=== PATIENT | female | born 1980 | race Caucasian/White ===

== ENCOUNTER 2017-03-25 12:02 | Emergency (ER) | payer MEDICAID ==
[2017-03-25 12:58] VITALS: BP 127/86
[2017-03-25 13:42] LABS: CHLORIDE,CL 107 mmol/L (98-107); SODIUM,NA 141 mmol/L (136-145)
--- NOTE | 2017-03-25 14:20 | EDM.PDOC ---
ED HISTORY OF PRESENT ILLNESS - General Chief Complaint: Cardiovascular Problem Stated Complaint: CARDIAC ISSUES Time Seen by Provider: 03/25/17 12:24 Source of Information: Reports: Patient, RN, RN notes reviewed History Limitations: Reports: No limitations - History of Present Illness INITIAL COMMENTS - FREE TEXT/NARRATIVE: Patient presents to emergency room at [facility] with concerns of heart palpitations. The patient was seen a couple of days ago at [facility] and by her PCP with the same complaint. The patient states that she was placed on a Holter monitor a couple days ago. The patient states that she felt her palpitations and became a little dizzy today. The patient contacted the Holter monitor company and they recommended she be seen in the emergency room. The patient states that she did feel her palpitations and some dizziness earlier today. The patient denies any shortness of breath or chest pain. Overall the patient states she feels fine. She is just concerned and would like to be checked out. 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: Psychiatric History: Reports: Anxiety, Depression - Past Surgical History HEENT Surgical History: Reports: Oral surgery Female Surgical History: Reports: section Musculoskeletal Surgical History: Reports: Other (see below) Other Musculoskeletal Surgeries/Procedures:: foot surger, plantar fascitis Social & Family History - Tobacco Use Smoking Status *Q: Current Every Day Smoker Years of Tobacco use: 20 Packs/Tins Daily: 0.5 Used Tobacco, but Quit: No Second Hand Smoke Exposure: Yes - Alcohol Use Days Per Week of Alcohol Use: 2 - Recreational Drug Use Recreational Drug Use: Yes Drug Use in Last 12 Months: No ED ROS GENERAL - Review of Systems Review Of Systems: See Below Constitutional: Denies: fever, chills, weakness Respiratory: Denies: Shortness of Breath, Cough Cardiovascular: Reports: Palpitations. Denies: Chest pain, Blood pressure problem, Dyspnea on exertion, Lightheadedness GI/Abdominal: Denies: Abdominal pain, Nausea, Vomiting Skin: Reports: no symptoms Neurological: Reports: Dizziness. Denies: Headache, Numbness, Paresthesia, Tingling ED EXAM, GENERAL - Physical Exam Exam: See Below Exam Limited By: No limitations General Appearance: alert, no apparent distress Respiratory/Chest: no respiratory distress, lungs clear, normal breath sounds Cardiovascular: normal peripheral pulses, regular rate, rhythm, no edema, no murmur Peripheral Pulses: 2+: radial (L), radial (R) GI/Abdominal: normal bowel sounds, soft, non tender Neurological: alert, oriented Skin Exam: Warm, Dry, Intact, Normal color, No rash EKG INTERPRETATION EKG Date: 03/25/17 Time: 12:30 Rhythm: NSR Rate (beats/min): 58 [place]: normal P-wave: present QRS: normal ST-T: normal QT: normal OH/PQ Interval: 0.15 Comparison: NA - no prior EKG EKG Interpretation Comments: Sinus Bradycardia Poor R wave progression - probable normal variant Course - Vital Signs Last Recorded V/S: Last Vital Signs Temp 37.1 C 03/25/17 12:57 Pulse 71 03/25/17 12:57 Resp 16 03/25/17 12:57 BP 127/86 03/25/17 12:57 Pulse Ox 97 03/25/17 12:57 - Orders/Labs/Meds Orders: Active Orders 24 hr Category Date Time Status Chest 2V [CR] Stat Exams 03/25/17 12:52 Taken Labs: Laboratory Tests 03/25/17 03/25/17 03/25/17 Range/Units 13:04 13:04 13:11 WBC 6.6 (4.0-10.0) x10^3/uL RBC 4.18 (4.00-5.50) x10^6/uL Hgb 12.2 (12.0-16.0) g/dL Hct 36.8 (33.0-47.0) % MCV 88.0 (78.0-93.0) fL MCH 29.2 (26.0-32.0) pg MCHC 33.2 (32.0-36.0) g/dL RDW Coeff of Emma 13.6 (10.0-15.0) % Plt Count 278 (130-400) x10^3/uL Neut % (Auto) 54.9 (50.0-80.0) % Lymph % (Auto) 34.5 (25.0-50.0) % Nash % (Auto) 8.4 (2.0-11.0) % Eos % (Auto) 1.7 (0.0-4.0) % Baso % (Auto) 0.5 (0.2-1.2) % Sodium 141 (136-145) mmol/L Potassium 4.4 (3.5-5.1) mmol/L Chloride 107 (98-107) mmol/L Carbon Dioxide 27 (21-32) mmol/L BUN 13 (7-18) mg/dL Creatinine 0.8 (0.55-1.02) mg/dL Est Cr Clr Drug Dosing 86.64 mL/min Estimated GFR (MDRD) > 60 Glucose 99 (74-106) mg/dL Calcium 8.5 (8.5-10.1) mg/dL Phosphorus 3.4 (2.6-4.7) mg/dL Magnesium 2.1 (1.8-2.4) mg/dL Creatine Kinase 97 (26-192) U/L Creatine Kinase Index 0.6 (0.0-4.0) % CK-MB (CK-2) 0.6 (0.0-3.6) ng/mL POC Troponin I 0.00 (0.00-0.08) ng/mL - Radiology Interpretation Free Text/Narrative:: CXR: No acute process; see scanned document in EMR Departure - Departure Time of Disposition: 14:19 Disposition: Home, Self-Care 01 Condition: good Clinical Impression: Palpitations Instructions: Palpitations Referrals: Bri Hansen PA-C [Primary Care Provider] - Forms: ED Department Discharge Additional Instructions: 1. Stay well hydrated and rest 2. Continue to wear monitor as directed 3. See your Primary as needed - Problem List Review Problem List Initiated/Reviewed/Updated: Yes - My Orders Last 24 Hours: My Active Orders 03/25/17 12:52 Chest 2V [CR] Stat - Assessment/Plan Last 24 Hours: My Active Orders 03/25/17 12:52 Chest 2V [CR] Stat
== END 2017-03-25 14:30 | disposition home or self-care (01) ==
LOC: VM.ED 12:02
DX: R00.2 Palpitations (principal); F41.9 Anxiety disorder, unspecified; F32.9 Major depressive disorder, single episode, unspecified; F17.210 Nicotine dependence, cigarettes, uncomplicated; Z79.899 Other long term (current) drug therapy
CPT/HCPCS: 36415; 71020; 80048; 82550; 82553; 83735; 84100; 84484; 85025; 93005; 99284

== ENCOUNTER 2019-11-29 13:10 | Emergency (ER) | payer SELFPAY ==
--- NOTE | 2019-11-29 13:22 | EDM.PDOC ---
ED HPI GENERAL MEDICAL PROBLEM - General Chief Complaint: Lower Extremity Injury/Pain Stated Complaint: right ankle injury Time Seen by Provider: 11/29/19 13:10 Source of Information: Reports: Patient History Limitations: Reports: No Limitations - History of Present Illness INITIAL COMMENTS - FREE TEXT/NARRATIVE: Patient comes in the emergency department with complaint of a right ankle injury. Patient states that she was dancing last night ended up miss stepping and rolling her right ankle. She felt a popping/crunching sensation. She states that she was unable to bear weight initially on the ankle. She did go home and try to elevate it and place ice over the right lower extremity. She states that she can place minimal amount of weight on that right extremity. She states that it hurts to move her ankle in all directions. She also notes that she has continued to have swelling in the lower extremity. Patient has had a smoking history with sprained ankles on that right lower extremity when she was younger due to sports related injuries. Patient denies ever having a fracture that lower externally. Eyes any other injuries or concerns. 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: Psychiatric History: Reports: Anxiety, Depression - Past Surgical History HEENT Surgical History: Reports: Oral Surgery Female Surgical History: Reports: Section Musculoskeletal Surgical History: Reports: Other (See Below) Review of Systems - Review of Systems Review Of Systems: See Below Constitutional: Reports: No Symptoms Eyes: Reports: No Symptoms Ears: Reports: No Symptoms Nose: Reports: No Symptoms Mouth/Throat: Reports: No Symptoms Respiratory: Reports: No Symptoms Cardiovascular: Reports: No Symptoms GI/Abdominal: Reports: No Symptoms Genitourinary: Reports: No Symptoms Skin: Reports: No Symptoms ED EXAM, GENERAL - Physical Exam Exam: See Below Exam Limited By: No Limitations General Appearance: Alert, WD/WN, No Apparent Distress Respiratory/Chest: No Respiratory Distress, No Accessory Muscle Use, Chest Non- Tender Cardiovascular: Normal Peripheral Pulses, Regular Rate, Rhythm, No Edema Back Exam: Normal Inspection, Full Range of Motion Extremities: Leg Pain (right ankle. CMS intact, limited Range motion all directions due to pain. mild-mod swelling lateral aspect ankle. No redness or warmth noted ) Neurological: Alert, Oriented, CN II-XII Intact, Normal Cognition Psychiatric: Normal Affect, Normal Mood Skin Exam: Warm, Dry, Intact, Normal Color Course - Vital Signs Last Recorded V/S: Last Vital Signs Temp 36.7 C 11/29/19 13:10 Pulse 91 11/29/19 13:10 Resp 16 11/29/19 13:10 BP 122/88 11/29/19 13:10 Pulse Ox 98 11/29/19 13:10 - Orders/Labs/Meds Orders: Active Orders 24 hr Category Date Time Status Ankle Min 3V Rt [CR] Stat Exams 11/29/19 13:17 Ordered Meds: Medications Discontinued Medications Generic Name Dose Route Start Last Admin Trade Name Freq PRN Reason Stop Dose Admin Oxycodone/Acetaminophen 1 tab 11/29/19 13:17 11/29/19 13:27 Percocet 325-5 Mg PO 11/29/19 13:18 1 tab ONETIME ONE Administration Departure - Departure Time of Disposition: 14:50 Disposition: Home, Self-Care 01 Condition: Good Clinical Impression: Right ankle sprain Qualifiers: Encounter type: initial encounter Involved ligament of ankle: other ligament Qualified Code(s): S93.491A - Sprain of other ligament of right ankle, initial encounter - Discharge Information *PRESCRIPTION DRUG MONITORING PROGRAM REVIEWED*: Not Applicable *COPY OF PRESCRIPTION DRUG MONITORING REPORT IN PATIENT TED: Not Applicable Instructions: RICE Therapy for Routine Care of Injuries, [id number], Ankle Sprain, [id number] Forms: ED Department Discharge, ED Return to Work/School Form Additional Instructions: 1. rest 2. increase your water intake 3. Elevate the lower extremity as much as possible to reduce swelling 4. Apply ice to the area 3-4 times a day 20 minutes each time 5. Use splinting for 5-7 days for comfort, support, and to reduce swelling 6. Bear weight as tolerated 7. Can use Tylenol and ibuprofen as needed for any pain or discomfort 8. Follow up within 2 weeks if not better or symptoms progress or worsen 9. Call with questions or concerns Sepsis Event Note - Focused Exam Vital Signs: Vital Signs Temp Pulse Resp BP Pulse Ox 11/29/19 13:10 36.7 C 91 16 122/88 98 Date Exam was Performed: 11/29/19 Time Exam was Performed: 13:48 - My Orders Last 24 Hours: My Active Orders 11/29/19 13:17 Ankle Min 3V Rt [CR] Stat - Assessment/Plan Last 24 Hours: My Active Orders 11/29/19 13:17 Ankle Min 3V Rt [CR] Stat Assessment:: 1. right ankle pain 2. right ankle sprain Plan: 1. X-ray completed of the right ankle. Results reviewed with the patient 2. Percocet by mouth given to the patient due to significant pain 3. Air splinting to the right ankle for comfort and support 4. Education regarding RICE, air splint, OTC medication management, activity and follow up care provided 5. All questions and concerns addressed prior to discharge
[2019-11-29 13:23] VITALS: BP 122/88; PULSE 91
[2019-11-29] MEDS: Acetaminophen/oxyCODONE 325-5 MG Tab PO ONE (13:27)
--- NOTE | 2019-11-29 13:51 | CR ---
[id number] RAD/RAD Ankle Right 3V Min EXAM: RAD Ankle Right 3V Min CLINICAL DATA: TRAUMA COMPARISON: NO PREVIOUS SIMILAR EXAM IS AVAILABLE. FINDINGS: No fracture or dislocation is seen. There is no radiopaque foreign body in the soft tissues. There is no air in the soft tissues. There is no cortical thickening or periosteal reaction either. IMPRESSION: NEGATIVE PLAIN FILM EXAM. Chilo Root MD 11/29/19 1738 Thank you for allowing us to participate in the care of your patient.
== END 2019-11-29 14:00 | disposition home or self-care (01) ==
LOC: VM.ED 13:10
DX: S93.491A Sprain of other ligament of right ankle, initial encounter (principal); F41.9 Anxiety disorder, unspecified; F32.9 Major depressive disorder, single episode, unspecified; Z91.018 Allergy to other foods; X58.XXXA Exposure to other specified factors, initial encounter; Y93.41 Activity, dancing
CPT/HCPCS: 73610-RT; 99283-25; 99283-GF; A9270-GY

== ENCOUNTER 2020-07-06 19:57 | Emergency (ER) | payer SELFPAY ==
[2020-07-06] MEDS ORDERED: Sodium Chloride 0.9% 10 ML Syringe FLUSH PRN (20:20)
[2020-07-06] MEDS ORDERED: Albuterol/Ipratropium 3.0-0.5 MG/3 ML Neb Soln NEB ONE (20:22)
[2020-07-06] MEDS ORDERED: HYDROmorphone 1 MG/ML Syringe IVPUSH ONE (20:23)
[2020-07-06] MEDS ORDERED: Aspirin 81 MG Tab.Chew PO ONE (20:31)
--- NOTE | 2020-07-06 20:42 | EDM.PDOC ---
<CoyJan gomez W - Last Filed: 07/06/20 21:29> ED HPI GENERAL MEDICAL PROBLEM - General Time Seen by Provider: 07/06/20 20:02 Source of Information: Reports: Patient History Limitations: Reports: No Limitations - History of Present Illness INITIAL COMMENTS - FREE TEXT/NARRATIVE: Pt. presents to ER with complaints of respirophasic chest pain and shortness of breath. She states that she can't take a deep breath. He states that this started about 30 min prior to arrival to ER. Pt. states that she as at rest during onset of symptoms. She also states that she has some discomfort/tightness in neck as well. Denies any fever or chills. No recent cough. No nausea, vomiting, or diarrhea. Pt. has a history of smoking. She has a asthma and it looks like she has been treated for COPD exacerbations in the past. She is on Symbicort and Albuterol HFA. She has not had a PFT since 2013, which was normal at that time. Pt. denies any cough. No hemoptysis. Denies any fever or chills. Denies any rhinorrhea. Pt. States that she had a negative covid 19 test at the end of last week. Pt. denies any arm, jaw, or back pain. Denies any diaphoresis. Denies any chest trauma. Denies any exposure to fumes or toxins. Denies any exposure to ill individuals. She states that her PCP is Bri Hansen PA-C. Onset: Today Location: Reports: Chest Associated Symptoms: Reports: Chest Pain, Shortness of Breath. 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: Psychiatric History: Reports: Anxiety, Depression - Past Surgical History HEENT Surgical History: Reports: Oral Surgery Female Surgical History: Reports: Section Musculoskeletal Surgical History: Reports: Other (See Below) ED ROS GENERAL - Review of Systems Review Of Systems: See Below Constitutional: Denies: Fever, Chills, Malaise, Weakness, Fatigue, Night Sweats, Diaphoresis, Weight Loss HEENT: Reports: No Symptoms Respiratory: Reports: Shortness of Breath, Wheezing, Pleuritic Chest Pain Cardiovascular: Reports: Chest Pain Endocrine: Reports: No Symptoms GI/Abdominal: Reports: No Symptoms : Reports: No Symptoms Musculoskeletal: Reports: No Symptoms Skin: Reports: No Symptoms Neurological: Reports: No Symptoms Psychiatric: Reports: No Symptoms Hematologic/Lymphatic: Reports: No Symptoms Immunologic: Reports: No Symptoms ED EXAM, GENERAL - Physical Exam Exam: See Below Exam Limited By: No Limitations General Appearance: Alert, WD/WN, No Apparent Distress Eye Exam: Bilateral Eye: EOMI, PERRL Nose: Normal Inspection, Normal Mucosa, No Blood Throat/Mouth: Normal Inspection, Normal Lips, Normal Teeth, Normal Oropharynx, Normal Voice, No Airway Compromise Head: Atraumatic, Normocephalic Neck: Normal Inspection, Supple, Non-Tender, Full Range of Motion Respiratory/Chest: Lungs Clear, No Accessory Muscle Use, Wheezing, Other (Chest tender to palp and discomfort exacerbated with deep breathing.) Cardiovascular: Normal Peripheral Pulses, Regular Rate, Rhythm, No Edema, No Gallop, No JVD, No Murmur Peripheral Pulses: 4+: Radial (L) GI/Abdominal: Soft, Non-Tender, No Distention, No Mass (Female) Exam: Deferred Rectal (Female) Exam: Deferred Back Exam: Normal Inspection, Full Range of Motion Extremities: Normal Inspection, Normal Range of Motion, Non-Tender, No Pedal Edema, Normal Capillary Refill Neurological: Alert, Oriented, CN II-XII Intact, Normal Cognition, Normal Gait Psychiatric: Normal Affect, Normal Mood Skin Exam: Warm, Dry, Intact, Normal Color, No Rash Lymphatic: No Adenopathy EKG INTERPRETATION Rhythm: NSR [place]: Normal P-Wave: Present QRS: Normal ST-T: Normal QT: Normal Comparison: No Change Departure - Departure Time of Disposition: 21:26 Disposition: Home, Self-Care 01 Clinical Impression: Atypical chest pain, COPD exacerbation - Discharge Information Instructions: Chronic Obstructive Pulmonary Disease Exacerbation, [id number], Doxycycline tablets or capsules, Nonspecific Chest Pain, Adult, [id number], Prednisone tablets Referrals: Bri Hansen PA-C [Primary Care Provider] - Forms: ED Department Discharge - Problem List Review Problem List Initiated/Reviewed/Updated: Yes - Assessment/Plan Plan: Pt. was started on Prednisone 40mg once daily for 6 days. She did have some atelectasis on her chest x-ray and was started on doxycycline. Continue with albuterol inhaler. Ibuprofen as needed for discomfort. She was also given a 5 pack of norco 5/325mg with instructions to take one every 6-8 hours as needed for severe pain. Drink plenty of fluids. Off work tomorrow if needed. Recheck in clinic in 10-14 days, sooner if not gradually improving. <Dipak Díaz - Last Filed: 07/07/20 18:55> Course - Vital Signs Last Recorded V/S: Last Vital Signs Temp 98.4 F 07/06/20 19:57 Pulse 78 07/06/20 21:10 Resp 12 07/06/20 21:10 BP 118/73 07/06/20 21:10 Pulse Ox 96 07/06/20 21:10 - Orders/Labs/Meds Orders: Active Orders 24 hr Category Date Time Status Peripheral IV Insertion Adult [OM.PC] Routine Oth 07/06/20 20:21 Ordered Labs: Laboratory Tests 07/06/20 07/06/20 07/06/20 Range/Units 20:40 20:40 20:40 WBC 11.0 H (4.0-10.0) x10^3/uL RBC 4.10 (4.00-5.50) x10^6/uL Hgb 12.4 (12.0-16.0) g/dL Hct 37.3 (33.0-47.0) % MCV 91.0 D (78.0-93.0) fL MCH 30.2 (26.0-32.0) pg MCHC 33.2 (32.0-36.0) g/dL RDW Coeff of Emma 12.3 (10.0-15.0) % Plt Count 267 (130-400) x10^3/uL Neut % (Auto) 60.6 (50.0-80.0) % Lymph % (Auto) 29.1 (25.0-50.0) % Smith % (Auto) 8.6 (2.0-11.0) % Eos % (Auto) 1.4 (0.0-4.0) % Baso % (Auto) 0.3 (0.2-1.2) % PT 10.1 (9.5-12.3) SEC INR 0.9 L (2.0-3.5) D-Dimer, Quantitative 0.22 (<=0.58) mg/LFEU Sodium 139 (136-145) mmol/L Potassium 4.1 (3.5-5.1) mmol/L Chloride 103 (98-107) mmol/L Carbon Dioxide 30 (21-32) mmol/L Anion Gap 10.1 (10-20) mmol/L BUN 15 (7-18) mg/dL Creatinine 1.1 H (0.55-1.02) mg/dL Est Cr Clr Drug Dosing TNP Estimated GFR (MDRD) 55 Glucose 102 (74-106) mg/dL Calcium 8.5 (8.5-10.1) mg/dL Corrected Calcium 8.90 (8.5-10.1) mg/dL Magnesium 1.7 L (1.8-2.4) mg/dL Total Bilirubin 0.2 (0.2-1.0) mg/dL AST 17 (15-37) U/L ALT 20 (14-59) U/L Alkaline Phosphatase 71 (46-116) U/L Troponin I < 0.017 (<=0.056) ng/mL C-Reactive Protein 0.3 (<=0.9) mg/dL NT-Pro-B Natriuret Pep 79 (<=125) pg/mL Total Protein 6.8 (6.4-8.2) g/dL Albumin 3.5 (3.4-5.0) g/dL Globulin 3.3 Albumin/Globulin Ratio 1.06 Meds: Medications Discontinued Medications Generic Name Dose Route Start Last Admin Trade Name Freq PRN Reason Stop Dose Admin Hydrocodone Bitart/Acetaminophen 1 packet 07/06/20 21:19 07/06/20 21:29 Take Home: Acetam/Hydrocodon 325-5 Mg, 5 Pack PO 07/06/20 21:20 1 packet ONETIME ONE Administration Al Hydroxide/Mg Hydroxide 30 ml 07/06/20 20:50 07/06/20 21:05 Gi Cocktail PO 07/06/20 20:51 30 ml ONETIME ONE Administration Albuterol/Ipratropium 3 ml 07/06/20 20:22 07/06/20 20:44 Duoneb 3.0-0.5 Mg/3 Ml NEB 07/06/20 20:23 3 ml ONETIME ONE Administration Aspirin 324 mg 07/06/20 20:31 07/06/20 20:15 Aspirin PO 07/06/20 20:32 324 mg ONETIME ONE Administration Doxycycline Monohydrate 1 packet 07/06/20 21:18 07/06/20 21:29 Take Home: Doxycycline 100 Mg, 4 Tab Pack PO 07/06/20 21:19 1 packet ONETIME ONE Administration Hydromorphone HCl 1 mg 07/06/20 20:23 07/06/20 20:47 Dilaudid IVPUSH 07/06/20 20:24 1 mg ONETIME ONE Administration Methylprednisolone Sodium Succinate 125 mg 07/06/20 20:51 07/06/20 21:06 Solu-Medrol IV 07/06/20 20:52 125 mg ONETIME ONE Administration Sodium Chloride 10 ml 07/06/20 20:20 Saline Flush FLUSH ASDIRECTED PRN Keep Vein Open - Re-Assessments/Exams Free Text/Narrative Re-Assessment/Exam: 07/07/20 18:55 Strep screen resulted culture positive for Strep with a rare colony. On Doxycycline and should be appropriate.
[2020-07-06] MEDS ORDERED: GI Cocktail Oral Solution 30 ML PO ONE (20:50)
[2020-07-06] MEDS ORDERED: methylPREDNISolone Sodium Succinate 125 MG/2 ML SDV IV ONE (20:51)
--- NOTE | 2020-07-06 20:53 | CR ---
[id number] RAD/RAD Chest PA And Lateral EXAM: FRONTAL AND LATERAL CHEST INDICATION: SYNCOPE COMPARISON: March 25, 2017. DISCUSSION: The lungs are hypoinflated with mild bibasilar atelectasis and central vascular crowding. No definite infiltrates. Normal heart size. Chronic healed left clavicle fracture. IMPRESSION: 1. Low lung volumes. Otherwise negative examination. Aki Corley MD 07/06/20 1984 Thank you for allowing us to participate in the care of your patient.
[2020-07-06 21:13] LABS: CHLORIDE,CL 103 mmol/L (98-107); SODIUM,NA 139 mmol/L (136-145)
[2020-07-06 21:14] LABS: ANION GAP 10.1 mmol/L (10-20)
[2020-07-06] MEDS ORDERED: Take Home: Doxycycline 100 MG Tab, 4 Tab Pack PO ONE (21:18)
[2020-07-06] MEDS ORDERED: Take Home: Acetaminophen/HYDROcodone 325-5 MG, 5 Tab Pack PO ONE (21:19)
[2020-07-07 00:34] VITALS: BP 118/73; PULSE 78
== END 2020-07-06 21:53 | disposition home or self-care (01) ==
LOC: VM.ED 19:57
DX: J44.1 Chronic obstructive pulmonary disease with (acute) exacerbation (principal); Z91.018 Allergy to other foods; Z98.890 Other specified postprocedural states
CPT/HCPCS: 36415; 71046; 80053; 83735; 83880; 84484; 85025; 85379; 85610; 86140; 87081; 87880-QW; 93005; 93010; 94640; 96374; 96375; 99284; 99285-25; A9270-GY; J1170; J2930; J7620-GY

== ENCOUNTER 2023-07-02 08:30 | Emergency (ER) | payer BC ==
[2023-07-02 09:13] LABS: BASOPHILS PERCENT AUTO 0.4 % (0.2-1.2); EOSINOPHILS ABSOLUTE AUTO 0.1 x10^3/uL (0.0-0.5); EOSINOPHILS PERCENT AUTO 1.4 % (0.0-4.0); HEMATOCRIT 36.7 % (33.0-47.0); HEMOGLOBIN 13.1 g/dL (12.0-16.0); LYMPHOCYTES ABSOLUTE AUTO 2.4 x10^3/uL (1.0-4.8); LYMPHOCYTES PERCENT AUTO 28.7 % (25.0-50.0); MEAN CORPUSCULAR HEMOGLOBIN 31.3 pg (26.0-32.0); MEAN CORPUSCULAR HGB CONC 35.7 g/dL (32.0-36.0); MEAN CORPUSCULAR VOLUME 87.8 fL (78.0-93.0); MONOCYTES ABSOLUTE AUTO 0.7 x10^3/uL (0.0-0.8); MONOCYTES PERCENT AUTO 7.9 % (2.0-11.0); NEUTROPHILS ABSOLUTE AUTO 5.2 x10^3/uL (1.8-7.7); NEUTROPHILS PERCENT AUTO 61.6 % (50.0-80.0); PLATELET COUNT,PLT 213 x10^3/uL (130-400); RED BLOOD CELL COUNT 4.18 x10^6/uL (4.00-5.50); WHITE BLOOD CELL COUNT,WBC 8.4 x10^3/uL (4.0-10.0)
[2023-07-02 09:18] VITALS: BP 154/84; PULSE 78
[2023-07-02 09:36] LABS: ALANINE AMINOTRANSFERASE,ALT 20 U/L (14-59); ALBUMIN 3.5 g/dL (3.4-5.0); ALKALINE PHOSPHATASE 72 U/L (46-116); ASPARTATE AMNIOTRANSFERASE,AST 15 U/L (15-37); BILIRUBIN TOTAL 0.4 mg/dL (0.2-1.0); BLOOD UREA NITROGEN,BUN 11 mg/dL (7-18); CALCIUM 8.5 mg/dL (8.5-10.1); CARBON DIOXIDE,CO2 28 mmol/L (21-32); CHLORIDE,CL 102 mmol/L (98-107); CREATINE KINASE,CK 84 U/L (26-192); CREATININE 0.8 mg/dL (0.55-1.02); EST CRCL DRUG DOSING (CG) 84.88 mL/min; GLUCOSE RANDOM 93 mg/dL (70-99); LACTATE DEHYDROGENASE,LDH 182 U/L (81-234); POTASSIUM,K 3.9 mmol/L (3.5-5.1); SODIUM,NA 139 mmol/L (136-145)
[2023-07-02 09:38] LABS: ANION GAP 12.9 mmol/L (5-15); ESTIMATED GFR 94 mL/min (>=60)
[2023-07-02] MEDS: Promethazine 6.25 MG/5 ML Liquid 10 ML UD Cup PO STA (09:43)
[2023-07-02] MEDS: Aluminum Hydroxide/Magnesium Hydroxide/Simethicone Susp 30 ML Cup PO ONE (09:43)
== END 2023-07-02 10:21 | disposition home or self-care (01) ==
LOC: VM.ED 08:30
DX: R07.89 Other chest pain (principal); J45.909 Unspecified asthma, uncomplicated; F17.210 Nicotine dependence, cigarettes, uncomplicated; Z91.018 Allergy to other foods; Z79.899 Other long term (current) drug therapy
CPT/HCPCS: 71046; 80053; 82550; 83615; 83690; 84484; 85025; 86140; 87651-QW; 93005; 93010; 99284; 99285; A9270-GY

== ENCOUNTER 2024-08-08 06:53 | Day surgery (SDC) | payer BC ==
[2024-08-08] MEDS: Lactated Ringers 1,000 ML IV SCH (07:11)
[2024-08-08] MEDS ORDERED: fentaNYL 100 MCG/2 ML SDV ONE (07:48)
[2024-08-08] MEDS ORDERED: Propofol 200 MG/20 ML SDV ONE ×2 (07:48→09:13)
[2024-08-08 09:27] VITALS: PULSE 70
[2024-08-08 09:46] VITALS: BP 123/63
== END 2024-08-08 11:05 | disposition home or self-care (01) ==
LOC: VM.SDS 06:53
PROVIDERS: ATTEND Student in an Organized Health Care Education/Training Program
DX: D12.3 Benign neoplasm of transverse colon (principal); K62.5 Hemorrhage of anus and rectum; K21.9 Gastro-esophageal reflux disease without esophagitis; J45.20 Mild intermittent asthma, uncomplicated; F17.210 Nicotine dependence, cigarettes, uncomplicated; Z91.018 Allergy to other foods; Z79.899 Other long term (current) drug therapy; Z86.010 Personal history of colon polyps; Z80.0 Family history of malignant neoplasm of digestive organs
CPT/HCPCS: 00811; J2704; J3010; J7120